=== PATIENT | female | born 1990 | race Caucasian/White ===

== ENCOUNTER 2019-06-06 12:13 | Emergency (ER) | payer SELFPAY ==
--- NOTE | 2019-06-06 12:57 | EDM.PDOC ---
ED HPI GENERAL MEDICAL PROBLEM - General Chief Complaint: ENT Problem Stated Complaint: SINUS Time Seen by Provider: 06/06/19 12:40 Source of Information: Reports: Patient History Limitations: Reports: No Limitations - History of Present Illness INITIAL COMMENTS - FREE TEXT/NARRATIVE: This 29 year old female complains of pressure in her maxillary sinus area for the past week. She is blowing out yellow/green mucous from her nose. She states that she has had a problem with her sinuses in the past. She complains of a mild frontal headache that is getting better. She denies any cough or fever. She denies any nausea or vomiting. No visual symptoms. She denies any other problems. - Related Data Allergies Allergy/AdvReac Type Severity Reaction Status Date / Time No Known Allergies Allergy Verified 06/06/19 12:36 Home Meds: Home Meds Amoxicillin/Clavulanate K [Augmentin 875-125 MG] 1 tab PO BID #14 tab 06/06/19 [ Rx] Escitalopram [Lexapro] 40 mg PO DAILY 06/06/19 [History] valACYclovir HCl [valACYclovir] 500 mg PO BID 06/06/19 [History] Past Medical History Psychiatric History: Reports: Depression - Infectious Disease History Infectious Disease History: Reports: Chicken Pox Social & Family History - Tobacco Use Smoking Status *Q: Never Smoker - Caffeine Use Caffeine Use: Reports: Coffee - Recreational Drug Use Recreational Drug Use: No Recreational Drug Type: Reports: Marijuana/Hashish ED ROS ENT - Review of Systems Review Of Systems: See Below Constitutional: Reports: No Symptoms HEENT: Reports: Sinus Problem (maxillary area for one week) Respiratory: Reports: No Symptoms Cardiovascular: Reports: No Symptoms Endocrine: Reports: No Symptoms GI/Abdominal: Reports: No Symptoms : Reports: No Symptoms Musculoskeletal: Reports: No Symptoms Skin: Reports: No Symptoms Neurological: Reports: No Symptoms ED EXAM, ENT - Physical Exam Exam: See Below Exam Limited By: No Limitations General Appearance: Alert, WD/WN, No Apparent Distress Ears: Normal External Exam, Normal Canal, Hearing Grossly Normal, Normal TMs Nose: No Blood, Nasal Discharge (that is yellow to green when she blows her nose.), Other (tapping over the maxillary sinusus causes pain. Frontal sinsus are negative.) Mouth/Throat: Normal Inspection, Normal Oropharynx Head: Sinus Tenderness (maxillary area) Neck: Normal Inspection, Supple, Non-Tender Respiratory/Chest: No Respiratory Distress, Lungs Clear, Normal Breath Sounds Cardiovascular: Normal Peripheral Pulses, Regular Rate, Rhythm, No Edema, No Murmur GI/Abdominal: Normal Bowel Sounds, Soft, Non-Tender (Female) Exam: Deferred Rectal (Female) Exam: Deferred Back: Normal Inspection Extremities: Normal Inspection Skin: Warm, Dry, Intact, Normal Color, No Rash Lymphatic: No Adenopathy Course - Vital Signs Text/Narrative:: I discussed with the patient that she most likely have Maxillary sinusitis. She will be discharged. She agrees with the discharge plan. Last Recorded V/S: Last Vital Signs Temp 97.7 F 06/06/19 12:36 Pulse 83 06/06/19 12:36 Resp 16 06/06/19 12:36 BP 118/63 06/06/19 12:36 Pulse Ox 97 06/06/19 12:36 Departure - Departure Time of Disposition: 13:14 Disposition: Home, Self-Care 01 Condition: Good Clinical Impression: Sinusitis, acute Qualifiers: Sinusitis location: maxillary Recurrence: not specified as recurrent Qualified Code(s): J01.00 - Acute maxillary sinusitis, unspecified - Discharge Information *PRESCRIPTION DRUG MONITORING PROGRAM REVIEWED*: Yes *COPY OF PRESCRIPTION DRUG MONITORING REPORT IN PATIENT CHAPARRITA: Yes Instructions: Sinusitis, Adult, [id number] Referrals: Indira Thurman, ORDER ADMINISTRATOR [Primary Care Provider] - Additional Instructions: Take all medications as directed. You may us over the counter nasal saline spray on a as needed basis. Follow up with your PCP in the next two to four days. Drink plenty of clear liquids for the next 24-48 hours. Rest for the next 24 hours. Return to the ED if your condition gets worse or should you have any questions or concerns. The following information is given to patients seen in the emergency department who are being discharged to home. This information is to outline your options for follow-up care. We provide all patients seen in our emergency department with a follow-up referral. The need for follow-up, as well as the timing and circumstances, are variable depending upon the specifics of your emergency department visit. If you don't have a primary care physician on staff, we will provide you with a referral. We always advise you to contact your personal physician following an emergency department visit to inform them of the circumstance of the visit and for follow-up with them and/or the need for any referrals to a consulting specialist. The emergency department will also refer you to a specialist when appropriate. This referral assures that you have the opportunity for follow-up care with a specialist. All of these measure are taken in an effort to provide you with optimal care, which includes your follow-up. Under all circumstances we always encourage you to contact your private physician who remains a resource for coordinating your care. When calling for follow-up care, please make the office aware that this follow-up is from your recent emergency room visit. If for any reason you are refused follow-up, please contact the [facility] at and asked to speak to the emergency department charge nurse. Sepsis Event Note - Evaluation Sepsis Screening Result: No Definite Risk - Focused Exam Vital Signs: Vital Signs Temp Pulse Resp BP Pulse Ox 06/06/19 12:36 97.7 F 83 16 118/63 97 Date Exam was Performed: 06/06/19 Time Exam was Performed: 12:47
[2019-06-06] MEDS ORDERED: Amoxicillin/Clavulanate K 875-125 MG Tab PO ONE (13:12)
== END 2019-06-06 13:27 | disposition home or self-care (01) ==
LOC: MW.ED 12:13
DX: J01.00 Acute maxillary sinusitis, unspecified (principal); F32.9 Major depressive disorder, single episode, unspecified; Z79.899 Other long term (current) drug therapy
CPT/HCPCS: 99283; A9270-GY

== ENCOUNTER 2023-02-20 08:46 | Inpatient (IN) | payer MEDICAID ==
[2023-02-20] MEDS ORDERED: Lidocaine 1% 50 ML MDV INJECT PRN (09:33)
[2023-02-20] MEDS ORDERED: Carboprost Tromethamine 250 MCG/1 mL Vial IM PRN (09:33)
[2023-02-20] MEDS ORDERED: Methylergonovine 0.2 MG/1 ML Amp IM PRN (09:33)
[2023-02-20] MEDS ORDERED: Nalbuphine 10 MG/0.5 ML Syringe IVPUSH PRN (09:33)
[2023-02-20] MEDS ORDERED: Tranexamic Acid IN NACL,ISO-OS 1,000 MG in Premix Bag 1 BAG IV PRN ×2 (09:33)
[2023-02-20] MEDS ORDERED: Ondansetron 4 MG/2 ML SDV IVPUSH PRN (09:33)
[2023-02-20] MEDS ORDERED: Sodium Chloride 0.9% 2.5 ML Syringe FLUSH PRN (09:33)
[2023-02-20] MEDS ORDERED: Water For Irrigation,Sterile 1,000 ML Container IRR PRN (09:33)
[2023-02-20] MEDS ORDERED: Misoprostol 200 MCG Tab PO PRN (09:33)
[2023-02-20] MEDS ORDERED: Sodium Chloride 0.9% 20 ML SDV IV PRN (09:33)
[2023-02-20] MEDS ORDERED: Sodium Chloride 0.9% 10 ML Syringe FLUSH PRN (09:33)
[2023-02-20] MEDS ORDERED: Oxytocin/0.9 % Sodium Chloride 30 UNIT/500 ML BAG IV SCH ×2 (09:45→22:00)
[2023-02-20] MEDS: Lactated Ringers 1,000 ML IV SCH ×4 (09:50→21:00)
[2023-02-20] MEDS ORDERED: Sodium Chloride 0.9% 100 ML ONE (09:53)
[2023-02-20] MEDS ORDERED: Ampicillin 2 GM Vial ONE (09:53)
[2023-02-20 09:59] LABS: HEMATOCRIT 36.8 % (37.0-47.0); MEAN CORPUSCULAR HEMOGLOBIN 30.7 pg (28.0-32.0); MEAN CORPUSCULAR HGB CONC 35.3 g/dL (32.0-36.0); MEAN PLATELET VOLUME 11.3 fL (9.4-12.3); PLATELET COUNT,PLT 168 K/uL (150-400); RED BLOOD CELL COUNT 4.23 M/uL (4.10-5.30); WHITE BLOOD CELL COUNT,WBC 16.09 K/uL (3.9-11.3)
[2023-02-20] MEDS ORDERED: Ampicillin 2 GM in Sodium Chloride 0.9% 100 ML IV ONE (10:00)
[2023-02-20] MEDS ORDERED: Ropivacaine HCl/PF 200 ML ONE (11:20)
[2023-02-20] MEDS ORDERED: Phenylephrine HCl 0.5 MG/5 ML AMP ONE (11:21)
[2023-02-20] MEDS ORDERED: dexmedeTOMIDine HCl 200 MCG/2 ML SDV ONE (11:21)
[2023-02-20] MEDS ORDERED: Phenylephrine HCl 0.5 MG/5 ML AMP IVPUSH PRN (11:33)
[2023-02-20] MEDS ORDERED: ePHEDrine 50 MG/ML SDV IVPUSH PRN ×2 (11:33)
[2023-02-20] MEDS ORDERED: Ropivacaine HCl/PF 400 MG in Premix Bag 1 BAG EPIDUR SCH (11:45)
[2023-02-20] MEDS ORDERED: Sodium Chloride 0.9% 50 ML ONE (13:40)
[2023-02-20] MEDS ORDERED: Ampicillin 1 GM Vial ONE (13:40)
[2023-02-20] MEDS: Ampicillin 1 GM in Sodium Chloride 0.9% 50 ML IV SCH ×3 (14:03→22:31)
[2023-02-21] MEDS ORDERED: Benzocaine/Menthol 20%-0.5% Spray 78 GM Cannister ONE (04:00)
[2023-02-21] MEDS ORDERED: Ibuprofen 800 MG Tab ONE (04:01)
[2023-02-21] MEDS ORDERED: Witch Hazel Medicated Pads 40/Jar TOP ONE (04:01)
[2023-02-21] MEDS: Ibuprofen 800 MG Tab PO PRN ×2 (04:20→16:38)
[2023-02-21] MEDS ORDERED: Lanolin 100% Cream 7 GM Tube ONE (04:23)
[2023-02-21] MEDS ORDERED: oxyCODONE 5 MG Tab PO PRN (06:09)
[2023-02-21] MEDS ORDERED: Benzocaine/Menthol 20%-0.5% Spray 78 GM Cannister TOP PRN (06:09)
[2023-02-21] MEDS ORDERED: Lanolin 100% Cream 7 GM Tube TOP PRN (06:09)
[2023-02-21] MEDS ORDERED: Witch Hazel Medicated Pads 40/Jar TOP PRN (06:09)
[2023-02-21] MEDS: Docusate Sodium 100 MG Cap PO PRN ×2 (09:40→20:32)
[2023-02-21] MEDS: Acetaminophen 500 MG Tab PO PRN ×2 (11:19→20:31)
[2023-02-22] MEDS: Ibuprofen 800 MG Tab PO PRN ×4 (00:23→23:10)
[2023-02-22 06:14] LABS: HEMATOCRIT 31.8 % (37.0-47.0); HEMOGLOBIN 11.1 g/dL (12.0-16.0)
[2023-02-22] MEDS: Docusate Sodium 100 MG Cap PO PRN ×2 (09:33→20:35)
[2023-02-22] MEDS: Acetaminophen 500 MG Tab PO PRN (20:36)
== END 2023-02-22 23:50 | disposition home or self-care (01) | DRG 806 ==
LOC: MW.OB 08:46 → MW.OBCHECK 08:46 → MW.OB 11:06 → OBSVTOIN 02-21 02:19 → MW.OB 02-21 05:00
PROVIDERS: ADMIT Obstetrics & Gynecology Obstetrics; ATTEND Obstetrics & Gynecology Obstetrics
PROC: 10E0XZZ Delivery of Products of Conception, External Approach (ICD-10-PCS; principal; 2023-02-21)
PROC: 0HQ9XZZ Repair Perineum Skin, External Approach (ICD-10-PCS; 2023-02-21)
PROC: 3E0R3BZ Introduction of Anesthetic Agent into Spinal Canal, Percutaneous Approach (ICD-10-PCS; 2023-02-21)
PROC: 00HU33Z Insertion of Infusion Device into Spinal Canal, Percutaneous Approach (ICD-10-PCS; 2023-02-21)
PROC: 3E033VJ Introduction of Other Hormone into Peripheral Vein, Percutaneous Approach (ICD-10-PCS; 2023-02-21)
DX: O48.0 Post-term pregnancy (principal); O98.32 Other infections with a predominantly sexual mode of transmission complicating childbirth; Z37.0 Single live birth; O99.824 Streptococcus B carrier state complicating childbirth; Z3A.41 41 weeks gestation of pregnancy; A60.00 Herpesviral infection of urogenital system, unspecified; O70.0 First degree perineal laceration during delivery
CPT/HCPCS: 01967; 36415; 51702; 59025; 85014; 85018; 85027; 86592; 86850; 86900; 86901; A9270-GY; J0290; J2371; J2405; J2590; J2795; J3490; J7120